=== PATIENT | female | born 1975 | race American Indian/Alaskan Native ===

== ENCOUNTER 2016-08-14 10:14 | Emergency (ER) | payer MEDICAID ==
[2016-08-14 10:48] VITALS: BP 126/71
[2016-08-14 11:24] LABS: Alanine Aminotransferase 9 units/L (7-56); Albumin/Globulin Ratio 1.2 %; Alkaline Phosphatase 60 units/L (35-129); Anion Gap 15 mmol/L; Blood Urea Nitrogen 9 mg/dL (7-17); Calcium 9.1 mg/dL (8.4-10.2); Carbon Dioxide 23 mmol/L (22-30); Chloride 103.9 mmol/L (98-107); Glucose 86 mg/dL (65-100); Lipase 29 units/L (13-60); Potassium 3.7 mmol/L (3.6-5.0); Sodium 138 mmol/L (137-145); Total Protein 7.4 g/dL (6.3-8.2)
[2016-08-14 11:48] LABS: Eosinophils % (Auto) 1.8 % (0.0-4.3)
[2016-08-14 12:05] LABS: Basophils % (Auto) 1.8 % (0.0-1.8); Mean Corpuscular HGB Conc 29 % (30-34); Platelet Count 287 K/mm3 (140-440); Red Blood Count 4.39 M/mm3 (3.65-5.03); White Blood Count 3.9 K/mm3 (4.5-11.0)
[2016-08-14 12:06] LABS: Bilirubin,Urine NEG (Negative); Blood,Urine NEG (Negative); Ketones,Urine NEG (Negative); Leukocyte Esterase,Urine NEG (Negative); Mucus,Urine 1+ /HPF; Nitrite,Urine NEG (Negative); Protein,Urine <15 mg/dL mg/dL (Negative); RBC,Urine < 1.0 /HPF (0.0-6.0); Urobilinogen,Urine < 2.0 mg/dL (<2.0)
[2016-08-14 12:15] LABS: Hematocrit 25.8 % (30.3-42.9); Hemoglobin 7.4 gm/dl (10.1-14.3); Mean Corpuscular Hemoglobin 17 pg (28-32); Mean Corpuscular Volume 59 fl (79-97); Red Cell Distribution Width 20.9 % (13.2-15.2)
--- NOTE | 2016-08-14 14:10 | Emergency Department Report ---
ED General Adult HPI - General Chief complaint: Abdominal Pain Stated complaint: POSS /SEVER LWR BACK PAIN/ABD PAIN/ Time Seen by Provider: 08/14/16 13:22 Source: patient, RN notes reviewed Mode of arrival: Ambulatory Limitations: No Limitations - History of Present Illness Initial comments: 40-year-old female presents to the emergency Department with multiple complaints. Patient states that 5 days ago she strained her right lower back lifting a bucket of water. Patient describes achy pain that does not radiate. Patient is also complaining of cramping lower abdominal pain that began yesterday. Abdominal pain is intermittent and does not radiate. Patient states that she has not had a menstrual period since July 02, and she has never missed. Before. She wants to be checked for . She reports mild associated nausea, but has not vomited. There are no other complaints. -: Gradual, days(s) (5) Location: back, abdomen Radiation: non-radiation Severity scale (0 -10): 5 Quality: aching, other (cramping) Consistency: intermittent Improves with: none Worsens with: none Associated Symptoms: denies other symptoms Treatments Prior to Arrival: none - Related Data Previous Rx's Medication Instructions Recorded Last Taken Type Ferrous Sulfate [Feosol 325 MG tab] 325 mg PO TID #90 tablet 08/14/16 Unknown Rx traMADol [Ultram] 50 mg PO Q6HR PRN #20 tablet 08/14/16 Unknown Rx Allergies Allergy/AdvReac Type Severity Reaction Status Date / Time No Known Allergies Allergy Unverified 12/08/15 21:42 ED Review of Systems ROS: Stated complaint: POSS /SEVER LWR BACK PAIN/ABD PAIN/ Other details as noted in HPI Comment: All other systems reviewed and negative Gastrointestinal: abdominal pain, nausea Musculoskeletal: back pain ED Past Medical Hx - Past Medical History Previous Medical History?: Yes Hx Congestive Heart Failure: No Hx Diabetes: No Hx Pulmonary Embolism: Yes Hx Asthma: No Additional medical history: Anxiety, anemic - Surgical History Past Surgical History?: No - Family History Family history: no significant - Social History Smoking Status: Never Smoker Substance Use Type: None - Medications Home Medications: Home Medications Medication Instructions Recorded Confirmed Last Taken Type Ferrous Sulfate [Feosol 325 MG tab] 325 mg PO TID #90 tablet 08/14/16 Unknown Rx traMADol [Ultram] 50 mg PO Q6HR PRN #20 tablet 08/14/16 Unknown Rx ED Physical Exam - General Limitations: No Limitations General appearance: alert, in no apparent distress - Head Head exam: Present: atraumatic, normocephalic - Eye Eye exam: Present: normal appearance, PERRL, EOMI - ENT ENT exam: Present: normal exam, normal orophraynx, mucous membranes moist - Neck Neck exam: Present: normal inspection, full ROM. Absent: tenderness - Respiratory Respiratory exam: Present: normal lung sounds bilaterally. Absent: respiratory distress - Cardiovascular Cardiovascular Exam: Present: regular rate, normal rhythm, normal heart sounds - GI/Abdominal GI/Abdominal exam: Present: soft, normal bowel sounds. Absent: distended, tenderness - Extremities Exam Extremities exam: Present: normal inspection, full ROM. Absent: tenderness - Back Exam Back exam: Present: normal inspection, full ROM, tenderness, paraspinal tenderness (right lumbar). Absent: vertebral tenderness - Neurological Exam Neurological exam: Present: alert, oriented X3. Absent: motor sensory deficit - Skin Skin exam: Present: warm, dry, intact ED Course Vital Signs 08/14/16 08/14/16 10:37 13:52 Temperature 98.3 F Pulse Rate 80 Respiratory 20 16 Rate Blood Pressure 126/71 O2 Sat by Pulse 99 100 Oximetry ED Medical Decision Making - Lab Data Result diagrams: 08/14/16 10:50 08/14/16 10:50 - Medical Decision Making Lab results reviewed and discussed with the patient. Patient will be discharged home. To follow up with her primary care physician. - Differential Diagnosis lumbar strain, , UTI Critical care attestation.: If time is entered above; I have spent that time in minutes in the direct care of this critically ill patient, excluding procedure time. ED Disposition Clinical Impression: Irregular menstrual cycle Lumbar strain Qualifiers: Encounter type: initial encounter Qualified Code(s): S39.012A - Strain of muscle, fascia and tendon of lower back, initial encounter Disposition: DISCHARGED TO HOME OR SELFCARE Is pt being admited?: No Condition: Stable Instructions: Abdominal Pain (ED), Muscle Strain (ED) Prescriptions: Ferrous Sulfate [Feosol 325 MG tab] 325 mg PO TID #90 tablet traMADol [Ultram] 50 mg PO Q6HR PRN #20 tablet PRN Reason: Pain Referrals: JP BENJAMIN MD [Staff Physician] - 3-5 Days Time of Disposition: 14:18
== END 2016-08-14 14:30 | disposition home or self-care (01) ==
LOC: ED 10:14
DX: N92.6 Irregular menstruation, unspecified (principal); S39.012A Strain of muscle, fascia and tendon of lower back, initial encounter; X50.0XXA Overexertion from strenuous movement or load, initial encounter; Y93.9 Activity, unspecified; Y92.9 Unspecified place or not applicable; Y99.9 Unspecified external cause status
CPT/HCPCS: 36415; 80053; 81001; 81025; 83690; 85025; 99283